=== PATIENT | female | born 1985 | race Hispanic/Latino ===

== ENCOUNTER 2019-07-26 18:34 | Emergency (ER) | payer BC, OTHER ==
[2019-07-26] MEDS ORDERED: OSELTAMIVIR PHOSPHATE 75 MG CAP ONE (19:36)
== END 2019-07-26 20:00 | disposition home or self-care (01) ==
LOC: EDH 18:34
DX: J06.9 Acute upper respiratory infection, unspecified (principal)
CPT/HCPCS: 87804

== ENCOUNTER 2020-02-05 06:07 | Day surgery (SDC) | payer BC, OTHER ==
[~2020-02-05] VITALS: Ht 152.4 cm; Wt 49.9 kg
[2020-02-05] VITALS (7 sets, daily range): BP systolic 104–145; BP diastolic 49–96
[~2020-02-05 06:07] MED LIST: FAMO10TA39 PO; SUMA6CAR SQ
[2020-02-05] MEDS ORDERED: SODIUM CHLORIDE 0.9% 1000ML 1,000 ML IV ONE (06:18)
[2020-02-05] MEDS ORDERED: PROPOFOL 10 MG/ML 20ML VIAL IV ONE (06:40)
== END 2020-02-05 09:15 | disposition home or self-care (01) ==
LOC: ENDO 06:07 → DAH 06:07 → ENDO 09:15
PROVIDERS: ATTEND Internal Medicine
DX: R12 Heartburn (principal); K21.9 Gastro-esophageal reflux disease without esophagitis; K31.7 Polyp of stomach and duodenum; K44.9 Diaphragmatic hernia without obstruction or gangrene; K22.8 Other specified diseases of esophagus; K31.89 Other diseases of stomach and duodenum; Z80.0 Family history of malignant neoplasm of digestive organs; Z11.59 Encounter for screening for other viral diseases
CPT/HCPCS: 43239; 43251; 81025; 93005; A4215; A4221; A4222; A4223; A4606; A4620; A4657; A4663; C9803; J2704; J7030; U0003